=== PATIENT | male | born 1935 | race Caucasian/White ===

== ENCOUNTER → 2017-03-06 | Outpatient (CLI) | payer MEDICARE ==
[~2017-03-06] MED LIST: ACET-1600 PO; AMLO5TAB2 PO; ASPI-496 PO; ATEN50TA41 PO; CHOL20002 PO; CIPR250T27 PO; CYAN100028 PO; FERR325T10 PO; FOLI0.8T2 PO; OMEP-110 PO; SIMV40TA3 PO; VALS160T3 PO; VALS1TAB24 PO
== END | disposition home or self-care (01) ==
LOC: RAD 13:25
PROVIDERS: ATTEND Internal Medicine
DX: R05 Cough (principal); R06.02 Shortness of breath
CPT/HCPCS: 71020

== ENCOUNTER → 2017-03-31 | Outpatient (CLI) | payer MEDICARE | END | disposition home or self-care (01) | LOC: CFH 12:53 | PROVIDERS: ATTEND Internal Medicine Nephrology | DX: I12.9 Hypertensive chronic kidney disease with stage 1 through stage 4 chronic kidney disease, or unspecified chronic kidney disease (principal); N18.3 Chronic kidney disease, stage 3 (moderate); D63.1 Anemia in chronic kidney disease; N26.1 Atrophy of kidney (terminal); D41.4 Neoplasm of uncertain behavior of bladder; E61.1 Iron deficiency; E55.9 Vitamin D deficiency, unspecified; E78.5 Hyperlipidemia, unspecified; E78.3 Hyperchylomicronemia; R31.1 Benign essential microscopic hematuria; R80.3 Bence Jones proteinuria; D07.5 Carcinoma in situ of prostate; Z86.39 Personal history of other endocrine, nutritional and metabolic disease | CPT/HCPCS: 76770 ==

== ENCOUNTER 2017-04-21 10:04 | Inpatient (IN) | payer MEDICARE ==
[~2017-04-21] VITALS: Ht 180.3 cm; Wt 93.6 kg
[2017-04-21] MEDS ORDERED: ASPIRIN 81 MG TABLET CHEW ONE (10:43)
[2017-04-21] MEDS ORDERED: SODIUM CHLORIDE FLUSH 10ML SYR IVF ONE (11:00)
[2017-04-21] MEDS ORDERED: ASPIRIN 81 MG TABLET CHEW PO ONE (11:00)
[2017-04-21 11:04] LABS: BLOOD UREA NITROGEN 17 mg/dL (7-18)
[2017-04-21 11:10] LABS: IS PT STATUS REG ER OR PRE ER? YES
[2017-04-21] MEDS ORDERED: VALS1TAB12 PO (12:15)
[2017-04-21] MEDS ORDERED: CHOL200040 PO (12:15)
[2017-04-21] MEDS ORDERED: CYAN100028 PO (12:15)
[2017-04-21] MEDS ORDERED: iron PO (12:15)
[2017-04-21] MEDS: SODIUM CHLORIDE 0.9% 1,000 ML IV SCH ×2 (13:12→22:00)
[2017-04-21] MEDS ORDERED: CEFAZOLIN PMX 1GM/50ML 50 ML IVPB ONE (13:30)
[2017-04-21] MEDS ORDERED: SODIUM CHLORIDE 0.9% 1,000 ML IV SCH (13:32)
[2017-04-21] MEDS ORDERED: CEFAZOLIN PMX 1GM/50ML 50 ML ONE (13:39)
[2017-04-21] MEDS ORDERED: ACETAMINOPHEN 325 MG TABLET PO PRN (14:00)
[2017-04-21] MEDS ORDERED: ONDANSETRON 2MG/ML, 2ML IVPush PRN (14:00)
[2017-04-21 14:10] VITALS: BP 197/68
[2017-04-21 15:08] VITALS: BP 189/73
[2017-04-21] MEDS: ENALAPRILAT 1.25 MG/ML, 2ML IVPush PRN (15:12)
[2017-04-21 15:37] VITALS: BP 155/67
[2017-04-21 18:11] LABS: PATH.CAST-FLAG NOT PRESENT; SPERM-FLAG NOT PRESENT; SRC-FLAG NOT PRESENT; XTAL-FLAG NOT PRESENT; YLC-FLAG NOT PRESENT
[2017-04-21 20:06] VITALS: BP 152/73
[2017-04-21] MEDS: SIMVASTATIN 40 MG TABLET PO SCH (20:21)
[2017-04-22 01:12] VITALS: BP 145/68
[2017-04-22 05:21] LABS: BLOOD UREA NITROGEN 23 mg/dL (7-18); TOTAL IRON BINDING CAPACITY 201 mcg/dL (250-450)
[2017-04-22] MEDS: SODIUM CHLORIDE 0.9% 1,000 ML IV SCH ×4 (05:38→19:46)
[2017-04-22 07:03] VITALS: BP 181/72
[2017-04-22] MEDS: VALSARTAN 160 MG TABLET PO SCH (07:42)
[2017-04-22] MEDS: ASPIRIN 81 MG TABLET EC PO SCH (07:42)
[2017-04-22] MEDS: CYANOCOBALAMIN 1,000 MCG TABLET PO SCH (07:42)
[2017-04-22] MEDS: CHOLECALCIFEROL 1,000 UNIT TABLET PO SCH (07:42)
[2017-04-22] MEDS ORDERED: HYDROCHLOROTHIAZIDE 25 MG TABLET PO SCH (09:00)
[2017-04-22] MEDS ORDERED: MIDAZOLAM 1 MG/ML, 5ML ONE (09:16)
[2017-04-22] MEDS ORDERED: FENTANYL PF 100 MCG/2ML ONE (09:16)
[2017-04-22] MEDS ORDERED: LIDOCAINE 2%, 20ML ONE ×2 (09:16)
[2017-04-22] MEDS ORDERED: CEFAZOLIN PMX 1GM/50ML 50 ML ONE (09:16)
[2017-04-22] MEDS ORDERED: CEFAZOLIN 1,000 MG ONE (09:16)
[2017-04-22] MEDS ORDERED: ACETAMINOPHEN 325 MG TABLET PO PRN (10:30)
[2017-04-22] MEDS: AMLODIPINE 5 MG TABLET PO SCH (10:59)
[2017-04-22 13:12] VITALS: BP 161/61
[2017-04-22] MEDS: CEFAZOLIN PMX 1GM/50ML 50 ML IVPB SCH (17:17)
[2017-04-22 18:41] VITALS: BP 178/82
[2017-04-22 19:33] VITALS: BP 180/67
[2017-04-22] MEDS: SODIUM CHLORIDE FLUSH 10ML SYR IVF SCH (19:46)
[2017-04-22] MEDS: SIMVASTATIN 40 MG TABLET PO SCH (19:46)
[2017-04-22] MEDS: ENALAPRILAT 1.25 MG/ML, 2ML IVPush PRN (19:46)
[2017-04-22 21:30] VITALS: BP 157/57
[2017-04-23 01:40] VITALS: BP 157/68
[2017-04-23] MEDS: CEFAZOLIN PMX 1GM/50ML 50 ML IVPB SCH (01:54)
[2017-04-23] MEDS: SODIUM CHLORIDE 0.9% 1,000 ML IV SCH (05:18)
[2017-04-23 06:10] LABS: BLOOD UREA NITROGEN 18 mg/dL (7-18)
[2017-04-23 07:16] VITALS: BP 179/69
[2017-04-23] MEDS ORDERED: CARVEDILOL 6.25 MG TABLET PO SCH (08:30)
[2017-04-23] MEDS ORDERED: TAMSULOSIN 0.4 MG CAP.ER.24H PO SCH (09:00)
[2017-04-23] MEDS: ASPIRIN 81 MG TABLET EC PO SCH (09:15)
[2017-04-23] MEDS: CYANOCOBALAMIN 1,000 MCG TABLET PO SCH (09:15)
[2017-04-23] MEDS: AMLODIPINE 5 MG TABLET PO SCH (09:15)
[2017-04-23] MEDS: CHOLECALCIFEROL 1,000 UNIT TABLET PO SCH (09:15)
[2017-04-23] MEDS: VALSARTAN 160 MG TABLET PO SCH (09:16)
[2017-04-23] MEDS: SODIUM CHLORIDE FLUSH 10ML SYR IVF SCH (09:18)
[2017-04-23] MEDS ORDERED: AMLO5TAB2 PO (09:45)
[2017-04-23] MEDS ORDERED: CARV6.2512 PO (09:45)
[2017-04-23] MEDS ORDERED: TAMS-11 PO (09:45)
[2017-04-23 10:52] VITALS: BP 145/71
[2017-04-23 11:11] VITALS: BP_SYST 137; BP_SYST 150; BP_SYST 182; BP_DIAS 72; BP_DIAS 75; BP_DIAS 81
== END 2017-04-23 12:41 | disposition left against medical advice (07) | DRG 242 ==
LOC: ED 11:14 → EDIP 12:05 → 5SO 14:00
PROVIDERS: ADMIT Internal Medicine; ATTEND Internal Medicine
PROC: 0JH606Z Insertion of Pacemaker, Dual Chamber into Chest Subcutaneous Tissue and Fascia, Open Approach (ICD-10-PCS; principal; 2017-04-22)
PROC: 02H63JZ Insertion of Pacemaker Lead into Right Atrium, Percutaneous Approach (ICD-10-PCS; 2017-04-22)
PROC: 02HK3JZ Insertion of Pacemaker Lead into Right Ventricle, Percutaneous Approach (ICD-10-PCS; 2017-04-22)
DX: I44.2 Atrioventricular block, complete (principal); N17.0 Acute kidney failure with tubular necrosis; E87.1 Hypo-osmolality and hyponatremia; D64.9 Anemia, unspecified; E53.8 Deficiency of other specified B group vitamins; E55.9 Vitamin D deficiency, unspecified; N28.1 Cyst of kidney, acquired; E78.5 Hyperlipidemia, unspecified; E86.1 Hypovolemia; I12.9 Hypertensive chronic kidney disease with stage 1 through stage 4 chronic kidney disease, or unspecified chronic kidney disease; I16.0 Hypertensive urgency; N18.3 Chronic kidney disease, stage 3 (moderate); R33.8 Other retention of urine; Z79.82 Long term (current) use of aspirin; Z87.891 Personal history of nicotine dependence; Z91.041 Radiographic dye allergy status; Z79.899 Other long term (current) drug therapy
CPT/HCPCS: 33208; 36415; 71010; 76770; 80048; 81001; 82040; 82306; 82570; 82728; 83540; 83550; 83735; 84300; 84484; 85025; 85045; 85610; 85730; 93005; 96365; 99156; 99157; C1779; C1785; C1892; J0690; J2250; J3010; J3490; J7030

== ENCOUNTER 2017-06-21 20:09 | Inpatient (IN) | payer MEDICARE ==
[~2017-06-21] VITALS: Ht 180.3 cm; Wt 89.0 kg
[~2017-06-21 20:09] MED LIST changes: +CARV3.1212 PO; +CARV6.2512 PO; +CHOL200040 PO; +FOLI0.4T2 PO; +TAMS-11 PO; +VALS1TAB12 PO; +iron PO
[2017-06-21] MEDS ORDERED: HYDROmorphone 1 MG/ML, 1ML IM ONE (20:30)
[2017-06-21] MEDS ORDERED: DICYCLOMINE 10 MG CAPSULE PO ONE (20:30)
[2017-06-21] MEDS ORDERED: HYDROmorphone 1 MG/ML, 1ML ONE ×2 (20:34→21:11)
[2017-06-22] MEDS ORDERED: ONDANSETRON 2MG/ML, 2ML ONE (01:45)
[2017-06-22] MEDS ORDERED: MORPHINE SULFATE 4 MG/ML, 1ML ONE (01:45)
[2017-06-22] MEDS ORDERED: ONDANSETRON 2MG/ML, 2ML IVPush ONE (02:00)
[2017-06-22] MEDS ORDERED: MORPHINE SULFATE 4 MG/ML, 1ML IVPush PRN (02:00)
[2017-06-22 02:52] LABS: BLOOD UREA NITROGEN 21 mg/dL (7-18)
[2017-06-22 03:35] LABS: WHITE BLOOD COUNT 10.5 x10^3/uL (3.4-10)
[2017-06-22 06:20] VITALS: BP 116/66
[2017-06-22] MEDS ORDERED: ONDANSETRON 2MG/ML, 2ML IV PRN (06:30)
[2017-06-22] MEDS ORDERED: hydrALAzine 20 MG/ML, 1ML IV PRN (06:30)
[2017-06-22] MEDS ORDERED: MORPHINE SULFATE 4 MG/ML, 1ML IV PRN (06:30)
[2017-06-22] MEDS ORDERED: ACETAMINOPHEN 325 MG TABLET PO PRN (06:30)
[2017-06-22] MEDS ORDERED: MAGNESIUM HYDROXIDE 8%, 30ML UDC PO PRN (06:30)
[2017-06-22 07:42] VITALS: BP 102/65
[2017-06-22 08:28] LABS: PATH.CAST-FLAG NOT PRESENT; SPERM-FLAG NOT PRESENT; SRC-FLAG NOT PRESENT; XTAL-FLAG NOT PRESENT; YLC-FLAG NOT PRESENT
[2017-06-22] MEDS: CEFTRIAXONE PMX 1GM/50ML 50 ML IV SCH ×2 (10:05→19:13)
[2017-06-22] MEDS: SODIUM CHLORIDE 0.9% 1,000 ML IV SCH ×2 (10:05→21:30)
[2017-06-22 15:57] VITALS: BP 128/78
[2017-06-22 18:31] VITALS: BP 100/63
[2017-06-22] MEDS: TAMSULOSIN 0.4 MG CAP.ER.24H PO SCH (21:29)
[2017-06-23 00:52] VITALS: BP 119/64
[2017-06-23] MEDS: SODIUM CHLORIDE 0.9% 1,000 ML IV SCH ×2 (06:12→17:00)
[2017-06-23] MEDS: CEFTRIAXONE PMX 1GM/50ML 50 ML IV SCH ×2 (06:12→19:11)
[2017-06-23 06:22] LABS: HEMATOCRIT 28.2 % (39.2-51.8); HEMOGLOBIN 9.4 g/dL (13.7-18.0); WHITE BLOOD COUNT 7.3 x10^3/uL (3.4-10)
[2017-06-23 06:25] LABS: BLOOD UREA NITROGEN 18 mg/dL (7-18)
[2017-06-23 06:32] LABS: ASPARTATE AMINO TRANSFERASE 18 U/L (15-37)
[2017-06-23 07:45] VITALS: BP 123/75
[2017-06-23 15:15] VITALS: BP 132/74
[2017-06-23 19:32] VITALS: BP 147/74
[2017-06-23] MEDS: TAMSULOSIN 0.4 MG CAP.ER.24H PO SCH (20:33)
[2017-06-24 01:21] VITALS: BP 124/72
[2017-06-24 04:57] LABS: HEMATOCRIT 28.2 % (39.2-51.8); HEMOGLOBIN 9.5 g/dL (13.7-18.0)
[2017-06-24 05:06] LABS: BLOOD UREA NITROGEN 12 mg/dL (7-18)
[2017-06-24 07:13] VITALS: BP 166/78
[2017-06-24] MEDS: CEFTRIAXONE PMX 1GM/50ML 50 ML IV SCH ×2 (08:58→19:31)
[2017-06-24 14:00] VITALS: BP 144/84
[2017-06-24] MEDS: methylPREDNISolone SOD SUCC 125 MG/2 ML IV SCH ×2 (17:42→20:54)
[2017-06-24] MEDS: INDOMETHACIN 50 MG CAPSULE PO SCH ×2 (17:42→21:46)
[2017-06-24 19:32] VITALS: BP 142/82
[2017-06-24] MEDS: TAMSULOSIN 0.4 MG CAP.ER.24H PO SCH (21:46)
[2017-06-25 01:37] VITALS: BP 143/92
[2017-06-25 05:44] LABS: BLOOD UREA NITROGEN 21 mg/dL (7-18)
[2017-06-25 07:45] VITALS: BP 119/71
[2017-06-25] MEDS: CEFTRIAXONE PMX 1GM/50ML 50 ML IV SCH (07:47)
[2017-06-25] MEDS: INDOMETHACIN 50 MG CAPSULE PO SCH (08:29)
[2017-06-25] MEDS: methylPREDNISolone SOD SUCC 125 MG/2 ML IV SCH (08:29)
[2017-06-25] MEDS ORDERED: PRED10TA PO (11:41)
[2017-06-25] MEDS ORDERED: ONDA4TAB13 SL ×2 (11:43→13:07)
[2017-06-25] MEDS ORDERED: TRAM50TA2 PO (11:43)
[2017-06-25 13:39] VITALS: BP 114/68
[2017-06-25] MEDS ORDERED: MORPHINE SULFATE 4 MG/ML, 1ML IV PRN (15:30)
[2017-06-25] MEDS ORDERED: ONDANSETRON 2MG/ML, 2ML IV PRN (15:30)
[2017-06-25] MEDS ORDERED: hydrALAzine 20 MG/ML, 1ML IV PRN (15:30)
[2017-06-25] MEDS ORDERED: ACETAMINOPHEN 325 MG TABLET PO PRN (15:30)
[2017-06-25 20:28] VITALS: BP 144/73
== END 2017-06-25 15:45 | disposition home or self-care (01) | DRG 698 ==
LOC: ED 21:09 → EDIP 06-22 02:15 → 4NOR 06-22 04:15
PROVIDERS: ATTEND Internal Medicine
PROC: 0T9B70Z Drainage of Bladder with Drainage Device, Via Natural or Artificial Opening (ICD-10-PCS; principal; 2017-06-22)
DX: T83.091A Other mechanical complication of indwelling urethral catheter, initial encounter (principal); E43 Unspecified severe protein-calorie malnutrition; N17.9 Acute kidney failure, unspecified; N39.0 Urinary tract infection, site not specified; Z68.27 Body mass index [BMI] 27.0-27.9, adult; E78.5 Hyperlipidemia, unspecified; I12.9 Hypertensive chronic kidney disease with stage 1 through stage 4 chronic kidney disease, or unspecified chronic kidney disease; M10.9 Gout, unspecified; N18.3 Chronic kidney disease, stage 3 (moderate); N40.1 Benign prostatic hyperplasia with lower urinary tract symptoms; Y73.8 Miscellaneous gastroenterology and urology devices associated with adverse incidents, not elsewhere classified; R31.0 Gross hematuria; R33.8 Other retention of urine; Z66 Do not resuscitate; Z83.3 Family history of diabetes mellitus; Z85.46 Personal history of malignant neoplasm of prostate; Z95.0 Presence of cardiac pacemaker; Z91.041 Radiographic dye allergy status; Z91.013 Allergy to seafood
CPT/HCPCS: 36415; 51702; 72110; 76770; 80048; 80053; 81001; 82040; 83605; 83735; 84100; 84550; 85014; 85018; 85025; 85610; 85730; 87040; 87077; 87086; 87186; 93005; 96361; 96365; 96372; 96374; 99284; J0696; J1170; J2405; J2930; J7030

== ENCOUNTER 2017-07-20 12:10 | Emergency (ER) | payer MEDICARE ==
[~2017-07-20] VITALS: Ht 180.3 cm; Wt 91.0 kg
[~2017-07-20 12:10] MED LIST changes: -FERR325T10 PO; +FERR325T17 PO; +ONDA4TAB13 SL; +PRED10TA PO; +TRAM50TA2 PO
[2017-07-20 14:30] LABS: HEMATOCRIT 29.7 % (39.2-51.8); WHITE BLOOD COUNT 4.6 x10^3/uL (3.4-10)
[2017-07-20 14:41] LABS: BLOOD UREA NITROGEN 17 mg/dL (7-18)
[2017-07-20] MEDS ORDERED: HYDROmorphone 1 MG/ML, 1ML ONE (19:09)
[2017-07-20] MEDS ORDERED: ONDANSETRON ODT 4 MG ONE (19:10)
[2017-07-20] MEDS ORDERED: HYDROmorphone 1 MG/ML, 1ML IM ONE ×2 (19:30→22:30)
[2017-07-20] MEDS ORDERED: ONDANSETRON ODT 4 MG PO ONE (19:30)
[2017-07-20] MEDS ORDERED: DICYCLOMINE 10 MG CAPSULE PO ONE (22:30)
[2017-07-20 22:41] VITALS: BP 178/80
== END 2017-07-20 23:09 | disposition home or self-care (01) ==
LOC: ED 18:16
DX: R33.9 Retention of urine, unspecified (principal); N40.0 Benign prostatic hyperplasia without lower urinary tract symptoms; I11.9 Hypertensive heart disease without heart failure; E78.5 Hyperlipidemia, unspecified
CPT/HCPCS: 36415; 51702; 80048; 82040; 85025; 96372; 99284; J1170; Q0162

== ENCOUNTER 2017-12-29 11:58 | Day surgery (SDC) | payer MEDICARE ==
[2017-12-26 11:30] LABS: MICROSCOPIC INDICATED
[2017-12-26 11:38] LABS: ALBUMIN 3.4 g/dL (3.4-5.0); ANION GAP 8 mmol/L (5-15); CALCIUM 8.9 mg/dL (8.5-10.1); CHLORIDE 107 mmol/L (98-107)
[2017-12-26 11:40] LABS: ALANINE AMINOTRANSFERASE 15 U/L (12-78); ALKALINE PHOSPHATASE 66 U/L (45-117); BILIRUBIN,TOTAL 0.5 mg/dL (0.2-1.0); CREATININE 1.72 mg/dL (0.7-1.3); TOTAL PROTEIN 7.4 g/dL (6.4-8.2)
[~2017-12-29] VITALS: Ht 180.3 cm; Wt 89.0 kg
[~2017-12-29 11:58] MED LIST changes: +ALLO100T30 PO; +METO-93 PO
[2017-12-29] MEDS ORDERED: LACTATED RINGERS 1,000 ML IV SCH (12:22)
[2017-12-29 12:49] VITALS: BP 159/83
[2017-12-29] MEDS ORDERED: PROPOFOL 10 MG/ML, 20ML ONE (13:02)
[2017-12-29] MEDS ORDERED: ONDANSETRON 2MG/ML, 2ML ONE (13:02)
[2017-12-29] MEDS ORDERED: DEXAMETHASONE 4 MG/ML, 1ML ONE (13:02)
[2017-12-29] MEDS ORDERED: CEFAZOLIN 1,000 MG ONE (13:02)
[2017-12-29] MEDS ORDERED: ROCURONIUM 10 MG/ML,10ML ONE (13:41)
[2017-12-29] MEDS ORDERED: SUGAMMADEX 200 MG/2 ML IVPush ONE (14:09)
[2017-12-29] MEDS ORDERED: morphine SULFATE 10 MG/ML, 1ML IV PRN (14:30)
[2017-12-29] MEDS ORDERED: MEPERIDINE/PF 25MG/0.5ML IVPush PRN (14:30)
[2017-12-29] MEDS ORDERED: HYDROcodone/APAP 7.5-325MG/15ML UDC PO PRN (14:30)
[2017-12-29] MEDS ORDERED: HYDROmorphone 1 MG/ML, 1ML IV PRN (14:30)
[2017-12-29] MEDS ORDERED: ACETAMINOPHEN 325 MG TABLET PO PRN (14:30)
[2017-12-29] MEDS ORDERED: OXYcodone 5 MG/5 ML ORAL.SOL UDC PO PRN (14:30)
[2017-12-29] MEDS ORDERED: HYDROcodone/APAP 7.5-325MG/15ML UDC ONE (15:26)
[2017-12-29] MEDS ORDERED: FENTANYL PF 100 MCG/2ML ONE (15:26)
[2017-12-29] MEDS: FENTANYL PF 100 MCG/2ML IV PRN ×2 (15:30→15:37)
[2017-12-29] MEDS ORDERED: hydrALAzine 20 MG/ML, 1ML ONE (15:46)
[2017-12-29] MEDS ORDERED: hydrALAzine 20 MG/ML, 1ML IV PRN (16:00)
== END 2017-12-29 18:00 | disposition home or self-care (01) ==
LOC: OUT 11:58
PROVIDERS: ATTEND Urology
DX: N35.011 Post-traumatic bulbous urethral stricture (principal); N40.0 Benign prostatic hyperplasia without lower urinary tract symptoms; J44.9 Chronic obstructive pulmonary disease, unspecified; I10 Essential (primary) hypertension; Z85.46 Personal history of malignant neoplasm of prostate; Z95.0 Presence of cardiac pacemaker; Z98.890 Other specified postprocedural states
CPT/HCPCS: 36415; 52276; 74018; 76000; 80053; 81001; 87086; 93005; C1769; J0360; J0690; J1100; J2405; J2704; J3010; J7120

== ENCOUNTER → 2018-06-13 | Outpatient (CLI) | payer MEDICARE | END | disposition home or self-care (01) | LOC: CFH 13:00 | PROVIDERS: ATTEND Internal Medicine | DX: J84.10 Pulmonary fibrosis, unspecified (principal) | CPT/HCPCS: 71250 ==

== ENCOUNTER 2019-06-27 10:25 | Emergency (ER) | payer MEDICARE ==
[~2019-06-27] VITALS: Ht 180.3 cm; Wt 87.0 kg
[2019-06-27 16:31] VITALS: BP 174/68
== END 2019-06-27 16:35 | disposition home or self-care (01) ==
LOC: ED 13:06
DX: N30.01 Acute cystitis with hematuria (principal); R33.9 Retention of urine, unspecified; I10 Essential (primary) hypertension; E78.00 Pure hypercholesterolemia, unspecified; E78.5 Hyperlipidemia, unspecified; Z87.891 Personal history of nicotine dependence
CPT/HCPCS: 36415; 51702; 80053; 81001; 85025; 87077; 87086; 87186; 99284

== ENCOUNTER → 2020-02-21 | Outpatient (CLI) | payer MEDICARE ==
[~2020-02-21] MED LIST changes: +AMLO-150 PO; -AMLO5TAB2 PO; -CHOL20002 PO; +CHOL200052 PO; +FINA5TAB4 PO; +IRBE150T9 PO; +MELA3TAB56 PO; +QUET25TA7 PO; +SIMV40TA20 PO; -SIMV40TA3 PO; -VALS1TAB24 PO; +VALS1TAB25 PO
== END | disposition home or self-care (01) ==
LOC: CFH 15:27
PROVIDERS: ATTEND Internal Medicine Cardiovascular Disease
DX: I08.3 Combined rheumatic disorders of mitral, aortic and tricuspid valves (principal); I10 Essential (primary) hypertension
CPT/HCPCS: 93306